=== PATIENT | female | born 1965 | race Hispanic/Latino ===

== ENCOUNTER 2018-09-19 10:59 | Day surgery (SDC) | payer OTHER ==
[2018-09-19] MEDS ORDERED: Depo-Medrol 40 MG/ML IM ONE (11:00)
[2018-09-19] MEDS ORDERED: Marcaine 0.5% SDV 10 ML IJ ONE (11:00)
[2018-09-19] MEDS ORDERED: DIPRIVAN 200 MG/20 ML IV ONE (11:59)
[2018-09-19] MEDS ORDERED: Ketamine HCl 50 MG/ML ONE (12:00)
[2018-09-19] MEDS ORDERED: Lactated Ringers 1,000 ML IV ONE (13:12)
--- NOTE | 2018-09-19 13:48 | XRAY ---
Indication: Left knee injection. Intraoperative fluoroscopy was provided for 5 seconds. Single digital spot image submitted for interpretation demonstrates needle tip projecting over the left femur intercondylar notch. Correlate with intraoperative findings/report. Incidental note of total knee arthroplasty.
--- NOTE | 2018-09-19 13:48 | XRAY ---
Indication: Right knee injection. Intraoperative fluoroscopy was provided for 11 seconds. Single digital spot image submitted for interpretation demonstrates needle tip projecting over the right femur intercondylar notch. Small amount of contrast injected for needle tip placement. Correlate with intraoperative findings/report.
--- NOTE | 2018-09-19 13:51 | XRAY ---
11 seconds fluoroscopy time in surgery for intra-articular right knee injection.
--- NOTE | 2018-09-19 13:51 | XRAY ---
5 seconds fluoroscopy time in surgery for left intra-articular knee injection.
== END 2018-09-19 12:24 | disposition home or self-care (01) ==
LOC: SDC-PAIN 10:59
PROVIDERS: ATTEND Psychiatry & Neurology Pain Medicine
DX: M17.0 Bilateral primary osteoarthritis of knee (principal); M06.9 Rheumatoid arthritis, unspecified; F41.8 Other specified anxiety disorders; F43.10 Post-traumatic stress disorder, unspecified; R53.83 Other fatigue; Z79.899 Other long term (current) drug therapy
CPT/HCPCS: 20610; 73560; 77002; 84703; J1030; J2704; Q9966